=== PATIENT | female | born 1970 | race American Indian/Alaskan Native ===

== ENCOUNTER 2017-02-24 13:25 | Observation (INO) | payer MEDICARE, OTHER ==
[2017-02-24 13:26] VITALS: BMI 29.8
[2017-02-24] MEDS ORDERED: Aspirin 325 mg EC Tablets PO STA (14:07)
--- NOTE | 2017-02-24 14:29 | C.PDOC ---
History Of Present Illness 46 y/o female, sent by her PMD Dr. Trevon Rachel, and who reports she has been having chest pain on/off for several months. Pt with 2 prior ER visits, during which she reports "nothing was done". Patient was seen at PMD office today and sent to ED after EKG was performed and sent to Dr. Infante. Patient notes chest pain worsens with exertion and better with rest. Patient states she feels SOB and lightheaded with some palpitations on exertion. Notes she does not take anything for these symptoms. Dr. Infante reviewed EKG and called in saying the EKG looked ischemic, requesting admission for unstable angina. Time Seen by Provider: 02/24/17 13:38 Chief Complaint (Nursing): Chest Pain History Per: Patient History/Exam Limitations: no limitations Onset/Duration Of Symptoms: Days Current Symptoms Are (Timing): Still Present Quality: "Pain" Exacerbating Factors: Exertion Alleviating Factors: Rest Recent travel outside of the [facility]: No Past Medical History Reviewed: Historical Data, Nursing Documentation, Vital Signs Vital Signs: Last Vital Signs Temp 98.7 F 02/24/17 13:29 Pulse 20 L 02/24/17 13:29 Resp 70 H 02/24/17 13:29 BP 122/73 02/24/17 13:29 Pulse Ox 99 02/24/17 14:53 - Medical History PMH: Anxiety, Arthritis, Asthma, Back Problems, Depression, Gastritis, GERD, Hyperlipidemia Surgical History: - [facility] Procedures APPLICATION OF SPLINT (03/06/13) Family History: States: Unknown Family Hx - Social History Hx Tobacco Use: No Hx Alcohol Use: No Hx Substance Use: No - Immunization History Hx Tetanus Toxoid Vaccination: No Hx Influenza Vaccination: No Hx Pneumococcal Vaccination: No Review Of Systems Except As Marked, All Systems Reviewed And Found Negative. Constitutional: Negative for: Fever, Chills Cardiovascular: Positive for: Chest Pain. Negative for: Palpitations Respiratory: Negative for: Cough, Shortness of Breath Gastrointestinal: Negative for: Nausea, Vomiting Skin: Negative for: Rash Physical Exam - Physical Exam Appears: Non-toxic, No Acute Distress Skin: Normal Color, Warm, Dry Head: Atraumatic, Normacephalic Oral Mucosa: Moist Chest: Symmetrical Cardiovascular: Rhythm Regular Respiratory: Normal Breath Sounds, No Rales, No Rhonchi, No Wheezing Gastrointestinal/Abdominal: Soft, No Tenderness Back: Normal Inspection Extremity: Normal ROM, Capillary Refill (< 2 sec. ) Neurological/Psych: Oriented x3, Normal Speech, Normal Cognition ED Course And Treatment - Laboratory Results Result Diagrams: 02/24/17 14:49 02/24/17 14:49 Lab Interpretation: No Acute Changes ECG: Interpreted By Me ECG Rhythm: Sinus Rhythm ECG Interpretation: No Acute Changes Interpretation Of ECG: nonspecific ST abnormalities in II, III, aVF, V4, V5 Rate From EC (bpm) O2 Sat by Pulse Oximetry: 99 (RA) Pulse Ox Interpretation: Normal - Radiology CXR: Viewed By Me, Read By Radiologist CXR Interpretation: Yes: No Acute Disease, Other (Poor inspiration with low lung volumes, crowded bronchovascular markings and mild bibasilar atelectasis.) Progress Note: EKG, Bloodwork, CxR ordered. Pt received aspirin in the field as per RN. Discussed with Dr. Bryan, hospitalist, who agrees upon admission. - Physician Consult Information Physician Contacted: Chula Bryan Disposition - Disposition Disposition: HOSPITALIZED Disposition Time: 16:00 Condition: STABLE - POA Present On Arrival: None Core Measure Indicators: Chest Pain - Clinical Impression Clinical Impression: Chest pain - Scribe Statement The provider has reviewed the documentation as recorded by the Kyler Bennett Provider Attestation: All medical record entries made by the Sanfordibkelsie were at my direction and personally dictated by me. I have reviewed the chart and agree that the record accurately reflects my personal performance of the history, physical exam, medical decision making, and the department course for this patient. I have also personally directed, reviewed, and agree with the discharge instructions and disposition.
[2017-02-24 14:52] LABS: BASO # 0.1 K/uL (0.0-0.2); BASO % 1.6 % (0.0-2.0); EOS # 0.1 K/uL (0.0-0.7); HEMATOCRIT 40.6 % (34.0-47.0); LYMPH # 2.2 K/uL (1.0-4.3); LYMPH % 37.1 % (20.0-40.0); MEAN CELL VOLUME 90.4 fL (81.0-99.0); MEAN CORPUSCULAR HEMOGLOBIN 30.2 pg (27.0-31.0); MEAN CORPUSCULAR HGB CONC 33.4 g/dL (33.0-37.0); MEAN PLATELET VOLUME 7.9 fL (7.2-11.7); MONO # 0.4 K/uL (0.0-0.8); MONO % 6.5 % (0.0-10.0); NRBC % 0.1 % (0.0-2.0); RED CELL DISTRIBUTION WIDTH 12.7 % (11.5-14.5)
--- NOTE | 2017-02-24 14:54 | RAD ---
PROCEDURE: CHEST RADIOGRAPH, 1 VIEW HISTORY: chest pain COMPARISON: None available. FINDINGS: LUNGS: Poor inspiration with low lung volumes, crowded bronchovascular markings and mild bibasilar atelectasis. PLEURA: No pneumothorax or pleural fluid seen. CARDIOVASCULAR: Normal. OSSEOUS STRUCTURES: No significant abnormalities. VISUALIZED UPPER ABDOMEN: Normal. OTHER FINDINGS: None. IMPRESSION: Poor inspiration with low lung volumes, crowded bronchovascular markings and mild bibasilar atelectasis.
[2017-02-24 15:01] LABS: CHLORIDE 102 mmol/L (98-107); SODIUM 137 mmol/L (132-148)
[2017-02-24 15:02] LABS: POTASSIUM 3.5 mmol/L (3.6-5.2)
[2017-02-24 15:04] LABS: ALB/GLOB RATIO 1.4 (1.0-2.1); ALKALINE PHOSPHATASE 57 U/L (38-126); AST/SGOT 20 U/L (14-36); BILIRUBIN,TOTAL 0.5 mg/dL (0.2-1.3); BLOOD UREA NITROGEN 9 mg/dL (7-17); CARBON DIOXIDE 24 mmol/L (22-30); GFR AFRICAN-AMERICAN > 60
[2017-02-24 15:05] LABS: ALT/SGPT 17 U/L (9-52); CALCIUM 8.8 mg/dl (8.6-10.4); GLUCOSE,RANDOM 87 mg/dL (65-105)
[2017-02-24] MEDS ORDERED: Potassium Chloride 20 mEq ER Tab PO STA (15:34)
[2017-02-24] MEDS ORDERED: Magnesium Hydroxide Susp 30 ml UD PO ONE (15:34)
[2017-02-24] MEDS ORDERED: Albuterol-Ipratrop 3 mg / 0.5 (3 ml) UD INH PRN (15:51)
[2017-02-24] MEDS ORDERED: Potassium Chloride 20 mEq ER Tab PO ONE (15:59)
[2017-02-24] MEDS ORDERED: Aluminum Hydroxide/Magnesium Hydroxide Susp (30 mL) ONE (15:59)
--- NOTE | 2017-02-24 16:01 | CP.PCM.HP ---
<Ning Brown - Last Filed: 02/24/17 15:51> History of Present Illness - History of Present Illness History of Present Illness: CC: "on and off chest pain x 2 months" HPI: Patient is a 46 year old female with PMHx of hyperlipidemia, asthma, arthritis, GERD, anxiety and depression presenting for a 2+ month history of intermittent right and left sided chest pain. Patient says she does not remember what she was doing the first time she got the pain. She says it feels like a pressure that lasts 30 minutes, disappears for 30 minutes and then comes back. She says it goes through this cycle constantly. She never has a pain free day. Patient says the pain is not associated with walking. However, when she walks up stairs she gets SOB and gets palpitations along with the chest pressure. Patient says a few days ago the pain "went to my head" and made her feel dizzy. Patient says she feels the pain when she or someone else presses on her chest. Patient says aspirin helps the pain a little. Patient went to her PMD today. He took an EKG, sent it to mold parter, Dr. Infante. Dr. Infante said EKG looks like it has ischemic changes and that she should come into the ER. Patient denies burning pain for a few months. Patient says protonix made her vomit and get indigestion so she stopped taking it and now she feels better. However, she still feels nauseous sometimes and only has bowel movements twice a week. Patient also reports decreased vision and decreased hearing that started a few months ago. Patient also reports low back pain radiating into her feet causing tingling on the soles of her feet. Patient also reports neck pain radiating into both arms and two weeks of numbness in her left shoulder and left arm. Patient denies fever, chills, wheezes, coughing , diarrhea, dysuria, rashes. Patient does report dry skin. Patient denies suicidal ideations. PMD: Dr. Rogers Rachel PMHx: as above PSHx: 2001, endoscopy 2016 - gastritis found Family Hx: Mother - [place] at 64, Father - stroke at 64, DM, Brother - DM Social Hx: does not smoke, used to smoke a cigarette with friends approximately once a month but quit that one year ago, denies illicit drug use, lives with her daughter, is on disability for arthritis and depression Present on Admission - Present on Admission Any Indicators Present on Admission: No History of DVT/PE: No History of Uncontrolled Diabetes: No Urinary Catheter: No Review of Systems - Constitutional Constitutional: absent: Chills, Fever - EENT Eyes: Blurred Vision, Change in Vision Ears: Dizziness - Cardiovascular Cardiovascular: Chest Pain, Chest Pain at Rest, Dyspnea, Dyspnea on Exertion, Lightheadedness, Palpitations. absent: Diaphoresis, Edema, Pedal Edema - Respiratory Respiratory: Dyspnea. absent: Cough, Wheezing, Excessive Mucous Production - Gastrointestinal Gastrointestinal: Constipation, Heartburn, Nausea. absent: Abdominal Pain, Diarrhea, Vomiting - Genitourinary Genitourinary: absent: Dysuria - Musculoskeletal Musculoskeletal: Back Pain, Neck Pain, Numbness, Tingling - Integumentary Integumentary: Dry Skin - Neurological Neurological: Dizziness. absent: Headaches - Psychiatric Psychiatric: Anxiety. absent: Depression - Endocrine Endocrine: Palpitations. absent: Fatigue - Hematologic/Lymphatic Hematologic: absent: Easy Bleeding, Easy Bruising Past Patient History - Tetanus Immunizations Tetanus Immunization: Unknown - Past Medical History & Family History Past Medical History?: Yes Pertinent Family History: Mother - [place] at 64, Father - stroke at 64, DM, Brother - DM - Past Social History Smoking Status: Former Smoker Occupation: disability Alcohol: None Drugs: Denies Home Situation {Lives}: With Family - CARDIAC Hx Cardiac Disorders: No - PULMONARY Hx Asthma: Yes - MUSCULOSKELETAL/RHEUMATOLOGICAL Hx Arthritis: Yes - GASTROINTESTINAL Hx Gastritis: Yes - PSYCHIATRIC Hx Anxiety: Yes Hx Depression: Yes Hx Substance Use: No - SURGICAL HISTORY Hx Section: Yes - ANESTHESIA Hx Anesthesia: Yes Hx Anesthesia Reactions: No Hx Malignant Hyperthermia: No Meds Allergies/Adverse Reactions: Allergies Allergy/AdvReac Type Severity Reaction Status Date / Time No Known Allergies Allergy Verified 02/24/17 13:33 Physical Exam - Constitutional Appears: Non-toxic, No Acute Distress - Head Exam Head Exam: NORMAL INSPECTION - Eye Exam Eye Exam: EOMI, Normal appearance - ENT Exam ENT Exam: Mucous Membranes Moist - Respiratory Exam Respiratory Exam: Chest Wall Tenderness, Clear to Auscultation Bilateral, NORMAL BREATHING PATTERN. absent: Accessory Muscle Use, Decreased Breath Sounds , Rales, Rhonchi, Wheezes, Respiratory Distress Additional comments: inflammation of 3rd left rib insertion into sternum - Cardiovascular Exam Cardiovascular Exam: REGULAR RHYTHM, +S1, +S2. absent: Gallop, Rubs, Systolic Murmur - GI/Abdominal Exam GI & Abdominal Exam: Normal Bowel Sounds, Soft. absent: Distended, Firm, Tenderness - Extremities Exam Extremities exam: Positive for: normal capillary refill. Negative for: pedal edema - Neurological Exam Neurological exam: Alert, Oriented x3 - Psychiatric Exam Psychiatric exam: Normal Affect, Normal Mood - Skin Skin Exam: Normal Color, Warm Results - Vital Signs Recent Vital Signs: Last Vital Signs Temp 98.7 F 02/24/17 13:29 Pulse 20 L 02/24/17 13:29 Resp 70 H 02/24/17 13:29 BP 122/73 02/24/17 13:29 Pulse Ox 99 02/24/17 14:53 - Labs Result Diagrams: 02/24/17 14:49 02/24/17 14:49 Labs: Laboratory Results - last 24 hr 02/24/17 02/24/17 02/24/17 14:49 14:49 14:49 WBC 6.0 RBC 4.49 Hgb 13.6 Hct 40.6 MCV 90.4 MCH 30.2 MCHC 33.4 RDW 12.7 Plt Count 282 MPV 7.9 Neut % (Auto) 52.8 Lymph % (Auto) 37.1 [place] % (Auto) 6.5 Eos % (Auto) 2.0 Baso % (Auto) 1.6 Neut # 3.2 Lymph # 2.2 [place] # 0.4 Eos # 0.1 Baso # 0.1 Sodium 137 Potassium 3.5 L Chloride 102 Carbon Dioxide 24 Anion Gap 15 BUN 9 Creatinine 0.6 L Est GFR ( Amer) > 60 Est GFR (Non-Af Amer) > 60 Random Glucose 87 Calcium 8.8 Total Bilirubin 0.5 AST 20 ALT 17 Alkaline Phosphatase 57 Troponin I < 0.0120 Total Protein 7.0 Albumin 4.1 Globulin 3.0 Albumin/Globulin Ratio 1.4 Urine HCG, Qual Urine Opiates Screen Negative Urine Methadone Screen Negative Ur Barbiturates Screen Negative Ur Phencyclidine Scrn Negative Ur Amphetamines Screen Negative U Benzodiazepines Scrn Negative U Oth Cocaine Metabols Negative U Cannabinoids Screen Negative 02/24/17 14:49 WBC RBC Hgb Hct MCV MCH MCHC RDW Plt Count MPV Neut % (Auto) Lymph % (Auto) [place] % (Auto) Eos % (Auto) Baso % (Auto) Neut # Lymph # [place] # Eos # Baso # Sodium Potassium Chloride Carbon Dioxide Anion Gap BUN Creatinine Est GFR ( Amer) Est GFR (Non-Af Amer) Random Glucose Calcium Total Bilirubin AST ALT Alkaline Phosphatase Troponin I Total Protein Albumin Globulin Albumin/Globulin Ratio Urine HCG, Qual Negative Urine Opiates Screen Urine Methadone Screen Ur Barbiturates Screen Ur Phencyclidine Scrn Ur Amphetamines Screen U Benzodiazepines Scrn U Oth Cocaine Metabols U Cannabinoids Screen Assessment & Plan - Assessment and Plan (Free Text) Assessment: Chest Pain ALEXANDER neg x 1 EKG - NSR with ST wave abnormality F/U ROMIs x2 with EKGs Cardio consult - Dr. Infante - help appreciated F/U ECHO F/U FLP, HgbA1C, TSH Observation on telemetry floor Costochondritis Toradol 30mg IVP Q6 F/U Chest CT to evaluate ribs Sciatica Flexeril 10mg PO HS Toradol 30mg IVP Q6 Hyperlipidemia F/U Lipid panel [place] 3 1gm PO BID (home med) Crestor 10mg PO HS Asthma Duonebs Q6H PRN SOB GERD Pepcid 20mg PO BID F/U H. Pylori Ag Constipation Colace 100mg PO BID Milk of Magnesia Prophylactic measure SCDs Pepcid 20mg PO BID <Valentin Soto - Last Filed: 02/25/17 12:41> Results - Vital Signs Recent Vital Signs: Last Vital Signs Temp 98.2 F 02/25/17 07:00 Pulse 64 02/25/17 07:00 Resp 20 02/25/17 07:00 BP 106/67 02/25/17 07:00 Pulse Ox 98 02/25/17 07:00 - Labs Result Diagrams: 02/25/17 04:15 02/25/17 04:15 Labs: Laboratory Results - last 24 hr 02/24/17 02/25/17 02/25/17 21:25 04:15 04:15 WBC 6.0 RBC 4.29 Hgb 13.2 Hct 39.1 MCV 91.2 MCH 30.7 MCHC 33.7 RDW 12.7 Plt Count 262 MPV 7.8 Neut % (Auto) 41.1 L Lymph % (Auto) 46.6 H [place] % (Auto) 7.2 Eos % (Auto) 4.0 Baso % (Auto) 1.1 Neut # 2.5 Lymph # 2.8 [place] # 0.4 Eos # 0.2 Baso # 0.1 Sodium 135 Potassium 4.0 Chloride 103 Carbon Dioxide 23 Anion Gap 13 BUN 10 Creatinine 0.7 Est GFR ( Amer) > 60 Est GFR (Non-Af Amer) > 60 Random Glucose 96 Hemoglobin A1c Calcium 8.7 Total Bilirubin 0.4 AST 16 ALT 18 Alkaline Phosphatase 55 Total Creatine Kinase 51 49 CK-MB (Mass) < 0.22 < 0.22 Troponin I, Quant < 0.0120 < 0.0120 Total Protein 6.5 Albumin 3.6 Globulin 2.9 Albumin/Globulin Ratio 1.2 Triglycerides 55 Cholesterol 179 LDL Cholesterol Direct 125 HDL Cholesterol 46 TSH 3rd Generation 2.68 02/25/17 04:15 WBC RBC Hgb Hct MCV MCH MCHC RDW Plt Count MPV Neut % (Auto) Lymph % (Auto) [place] % (Auto) Eos % (Auto) Baso % (Auto) Neut # Lymph # [place] # Eos # Baso # Sodium Potassium Chloride Carbon Dioxide Anion Gap BUN Creatinine Est GFR ( Amer) Est GFR (Non-Af Amer) Random Glucose Hemoglobin A1c 5.4 Calcium Total Bilirubin AST ALT Alkaline Phosphatase Total Creatine Kinase CK-MB (Mass) Troponin I, Quant Total Protein Albumin Globulin Albumin/Globulin Ratio Triglycerides Cholesterol LDL Cholesterol Direct HDL Cholesterol TSH 3rd Generation Attending/Attestation - Attestation I have personally seen and examined this patient.: Yes I have fully participated in the care of the patient.: Yes I have reviewed all pertinent clinical information: Yes Notes (Text): Patient seen and examined with the resident. Agree with the resident's evaluation, assessment and plan. Chest Pain likely musculoskeletal ALEXANDER neg x 1 EKG - NSR with ST wave abnormality F/U ROMIs x2 with EKGs Cardio consult - Dr. Infante - help appreciated F/U ECHO F/U FLP, HgbA1C, TSH Observation on telemetry floor Costochondritis high likelyhood Toradol 30mg IVP Q6 F/U Chest CT to evaluate ribs Sciatica Flexeril 10mg PO HS Toradol 30mg IVP Q6 Hyperlipidemia F/U Lipid panel [place]on[place] 3 1gm PO BID (home med) Crestor 10mg PO HS
--- NOTE | 2017-02-24 17:30 | CT ---
PROCEDURE: CT scan chest dated 02/24/2017 HISTORY: Reproducible chest pain with rib abnormality. COMPARISON: Comparison made with chest radiograph obtained earlier same day TECHNIQUE: Contiguous axial images were obtained through the chest without intravenous contrast enhancement. Sagittal and coronal reconstructions were performed. Radiation dose (DLP): 403.67 mGy-cm. This CT exam was performed using one or more of the following dose reduction techniques: Automated exposure control, adjustment of the mA and/or kV according to patient size, and/or use of iterative reconstruction technique. FINDINGS: LUNGS: .Lung lynn are clear without focal consolidation. Small subpleural nodule seen in the left lung apex which probably represents a mild residual pleural thickening or scarring. Follow-up chest CT scan in 6 months could be performed to assess stability. MEDIASTINUM: Heart size within range of normal. No significant pericardial effusion. . There are mildly enlarged left para-aortic lymph nodes seen ; one measuring approximately 2.05 cm and the 2nd measuring approximately 1.75 cm. Smaller mediastinal lymph nodes also present. Evaluation for hilar adenopathy is somewhat limited due to the lack of circulating intravenous contrast material. Small hiatal hernia. PLEURA: No pleural fluid. No pneumothorax. BONES: The bony ribs appear intact without evidence of acute chronic fracture deformities. UPPER ABDOMEN: Visualized upper abdominal structures unremarkable. OTHER FINDINGS: None. IMPRESSION: No acute infiltrates. Small subpleural nodular density left lung apex may represent sequela of pleural thickening/ inflammation. Follow-up CT scan in 6 months could be performed. There are least 2 mildly enlarged mediastinal lymph nodes on as detailed above. Clinical correlation recommended.
[2017-02-24] MEDS: Omega-3-Acid Ethyl Esters 1 GM Cap PO SCH (17:57)
[2017-02-25 04:20] LABS: BASO # 0.1 K/uL (0.0-0.2); BASO % 1.1 % (0.0-2.0); EOS # 0.2 K/uL (0.0-0.7); HEMATOCRIT 39.1 % (34.0-47.0); LYMPH # 2.8 K/uL (1.0-4.3); LYMPH % 46.6 % (20.0-40.0); MEAN CELL VOLUME 91.2 fL (81.0-99.0); MEAN CORPUSCULAR HEMOGLOBIN 30.7 pg (27.0-31.0); MEAN CORPUSCULAR HGB CONC 33.7 g/dL (33.0-37.0); MEAN PLATELET VOLUME 7.8 fL (7.2-11.7); MONO # 0.4 K/uL (0.0-0.8); MONO % 7.2 % (0.0-10.0); NRBC % 0.1 % (0.0-2.0); RED CELL DISTRIBUTION WIDTH 12.7 % (11.5-14.5)
[2017-02-25 04:29] LABS: CHLORIDE 103 mmol/L (98-107)
[2017-02-25 04:30] LABS: SODIUM 135 mmol/L (132-148)
[2017-02-25 04:32] LABS: ALB/GLOB RATIO 1.2 (1.0-2.1); ALKALINE PHOSPHATASE 55 U/L (38-126); AST/SGOT 16 U/L (14-36); BILIRUBIN,TOTAL 0.4 mg/dL (0.2-1.3); BLOOD UREA NITROGEN 10 mg/dL (7-17); CARBON DIOXIDE 23 mmol/L (22-30); CHOLESTEROL 179 mg/dL (0-199); GFR AFRICAN-AMERICAN > 60; TOTAL PROTEIN 6.5 g/dL (6.3-8.3)
[2017-02-25 04:33] LABS: ALT/SGPT 18 U/L (9-52); CALCIUM 8.7 mg/dl (8.6-10.4); GLUCOSE,RANDOM 96 mg/dL (65-105)
[2017-02-25 05:04] LABS: THYROID STIMULATING HORMONE 2.68 mIU/L (0.46-4.68)
[2017-02-25] MEDS ORDERED: Midazolam 2 MG/2 ML VIAL ONE ×2 (10:18→11:12)
[2017-02-25] MEDS: Omega-3-Acid Ethyl Esters 1 GM Cap PO SCH ×2 (11:20→18:18)
--- NOTE | 2017-02-25 14:42 | CP.PCM.PN ---
<Ning Glass DO - Last Filed: 02/25/17 14:40> Subjective - Date & Time of Evaluation Date of Evaluation: 02/25/17 Time of Evaluation: 09:10 - Subjective Subjective: PGY1 progress note for Dr. Ortiz Patient seen and examined. Patient to have cardiac catheterization with Dr. Mercado today. Patient had outpatient EKG with PMD Dr. Rogers Rachel that showed some T wave inversions with concern for ischemic changes. Patient complains of chest achiness currently, with some reproduction of pain on exam. Objective - Vital Signs/Intake and Output Vital Signs (last 24 hours): Temp Pulse Resp BP Pulse Ox 98.2 F 64 20 106/67 98 02/25/17 07:00 02/25/17 07:00 02/25/17 07:00 02/25/17 07:00 02/25/17 07:00 Intake and Output: 02/25/17 02/25/17 06:59 18:59 Intake Total 10 Balance 10 - Medications Medications: Current Medications Albuterol/Ipratropium (Duoneb 3 Mg/0.5 Mg (3 Ml) Ud) 3 ml INH RQ6 PRN PRN Reason: Shortness of Breath Aspirin (Ecotrin) 81 mg PO DAILY [facility] Last Admin: 02/25/17 11:20 Dose: Not Given Cyclobenzaprine HCl (Flexeril) 10 mg PO HS [facility] Last Admin: 02/24/17 22:36 Dose: 10 mg Docusate Sodium (Colace) 100 mg PO BID [facility] Last Admin: 02/25/17 11:20 Dose: Not Given Famotidine (Pepcid) 20 mg PO BID [facility] Last Admin: 02/25/17 11:20 Dose: Not Given Heparin Sodium (Porcine) (Heparin) 5,000 units SC Q12 [facility] Ketorolac Tromethamine (Toradol) 30 mg IVP Q6 PRN PRN Reason: Pain, moderate (4-7) Fmgci-3-Dipq Ethyl Esters (Lovaza) 1 gm PO BID [facility] Last Admin: 02/25/17 11:20 Dose: Not Given Rosuvastatin Calcium (Crestor) 10 mg PO HS [facility] Last Admin: 02/24/17 22:36 Dose: 10 mg - Labs Labs: 02/25/17 04:15 02/25/17 04:15 - Constitutional Appears: No Acute Distress - Head Exam Head Exam: ATRAUMATIC - Eye Exam Eye Exam: EOMI - ENT Exam ENT Exam: Mucous Membranes Moist - Respiratory Exam Respiratory Exam: Chest Wall Tenderness, Clear to Ausculation Bilateral, NORMAL BREATHING PATTERN - Cardiovascular Exam Cardiovascular Exam: +S1, +S2 - GI/Abdominal Exam GI & Abdominal Exam: Soft, Normal Bowel Sounds. absent: Tenderness - Extremities Exam Extremities Exam: absent: Pedal Edema - Neurological Exam Neurological Exam: Alert, Awake - Psychiatric Exam Psychiatric exam: Normal Affect - Skin Skin Exam: Warm Assessment and Plan - Assessment and Plan (Free Text) Assessment: Chest Pain EKG - NSR with ST wave abnormality ROMIs negative Cardio consult - Dr. Infante - help appreciated ECHO done, report pending F/U FLP, HgbA1C, TSH Observation on telemetry floor s/p cardiac cath with clean coronaries Costochondritis Toradol 30mg IVP Q6 Chest CT: no acute infiltrates, small subpleural nodular density left lung apex may represent sequela of peural thickening/ inflammation. f/u CT scan in 6 months could be performed. at least 2 mildly enlarged mediastinal lymph nodes Sciatica Flexeril 10mg PO HS Toradol 30mg IVP Q6 Hyperlipidemia Lipid panel: Triglycerides 55/ cholesterol 179/ LDL 125/ HDL 46 [place] 3 1gm PO BID (home med) Crestor 10mg PO HS Asthma Duonebs Q6H PRN SOB GERD Pepcid 20mg PO BID F/U H. Pylori Ag Constipation Colace 100mg PO BID Milk of Magnesia Prophylactic measure SCDs Pepcid 20mg PO BID <Ahsan Ortiz H - Last Filed: 02/25/17 16:05> Objective - Vital Signs/Intake and Output Vital Signs (last 24 hours): Temp Pulse Resp BP Pulse Ox 98.2 F 64 20 106/67 98 02/25/17 07:00 02/25/17 07:00 02/25/17 07:00 02/25/17 07:00 02/25/17 07:00 Intake and Output: 02/25/17 02/25/17 06:59 18:59 Intake Total 10 Balance 10 - Medications Medications: Current Medications Albuterol/Ipratropium (Duoneb 3 Mg/0.5 Mg (3 Ml) Ud) 3 ml INH RQ6 PRN PRN Reason: Shortness of Breath Aspirin (Ecotrin) 81 mg PO DAILY [facility] Last Admin: 02/25/17 11:20 Dose: Not Given Cyclobenzaprine HCl (Flexeril) 10 mg PO HS [facility] Last Admin: 02/24/17 22:36 Dose: 10 mg Docusate Sodium (Colace) 100 mg PO BID [facility] Last Admin: 02/25/17 11:20 Dose: Not Given Famotidine (Pepcid) 20 mg PO BID [facility] Last Admin: 02/25/17 11:20 Dose: Not Given Heparin Sodium (Porcine) (Heparin) 5,000 units SC Q12 [facility] Ketorolac Tromethamine (Toradol) 30 mg IVP Q6 PRN PRN Reason: Pain, moderate (4-7) Rkmve-6-Toch Ethyl Esters (Lovaza) 1 gm PO BID [facility] Last Admin: 02/25/17 11:20 Dose: Not Given Rosuvastatin Calcium (Crestor) 10 mg PO HS [facility] Last Admin: 02/24/17 22:36 Dose: 10 mg - Labs Labs: 02/25/17 04:15 02/25/17 04:15 Attending/Attestation - Attestation I have personally seen and examined this patient.: Yes I have fully participated in the care of the patient.: Yes I have reviewed all pertinent clinical information, including history, physical exam and plan: Yes Notes (Text): Medical attending: Patient was seen and examined by me, agree with the above note by medical records technician. We saw her much earlier in the morning she had already been moved down to [place] and then from echo over to the [facility] waiting area. I spoke with the patient's primary care physician who did a EKG in the office and saw that there was a lot of concerning T-wave changes. When I spoke with the patient in the morning she said that she had been having these intermittent chest discomforts that were hard to describe to her for the past month and half So when I saw in the morning she had not yet had the cardiac cath done later on in the day I was informed that she completed the cardiac cath findings were okay I just will have an official report as of yet Thank you very much, Ahsan Ortiz
--- NOTE | 2017-02-25 16:38 | CARDCATH ---
PROCEDURE DATE: 02/25/2017 PERFORMING PHYSICIAN: Radha Mercado MD REFERRING PHYSICIAN: Valentin Soto MD PROCEDURE PERFORMED: Left heart catheterization, coronary angiography, left ventriculography. INDICATIONS: Unstable angina. HISTORY: The patient is a 46-year-old female with past medical history of hypertension, hypercholest erolemia, who has unstable angina. She is admitted for further management. DESCRIPTION OF PROCEDURE: After obtaining informed consent, the patient was prepped and draped in th e usual sterile fashion. The right groin was anesthetized with 2% lidocaine solution. A 6-English sh eath was inserted into right common femoral artery via modified Seldinger technique. Coronary angiog rudy and left ventriculography were then performed. All catheters were removed. Manual pressure wa s applied to achieve hemostasis. FINDINGS: LEFT MAIN: Normal. LEFT ANTERIOR DESCENDING ARTERY: Arises from left sinus of Valsalva. The mid vessel is intramyocard ial. Otherwise, there is no significant atherosclerosis. LEFT CIRCUMFLEX ARTERY: Normal. RIGHT CORONARY ARTERY: Arises from the right sinus of Valsalva. This is a right dominant circulatio n. Normal. LEFT VENTRICLE: Normal left ventricular systolic function. Ejection fraction 55% to 60%. There is no mitral regurgitation, no aortic stenosis. CONCLUSIONS: 1. No angiographic evidence of significant coronary artery disease. 2. Normal left ventricular function. PLAN: Medical therapy. Radha Mercado MD cc: [phone] TT: 02/25/2017 16:38:36 dn
[2017-02-25 16:42] VITALS: O2SAT 97
--- NOTE | 2017-02-25 23:16 | CARD ---
APPROVED REPORT EKG Measurement Heart [id number] <Conclusion> Normal sinus rhythm Nonspecific T wave abnormality Abnormal ECG
--- NOTE | 2017-02-25 23:16 | CARD ---
APPROVED REPORT EKG Measurement Heart [id number] <Conclusion> Normal sinus rhythm Nonspecific T wave abnormality Abnormal ECG
--- NOTE | 2017-02-26 00:06 | CARD ---
APPROVED REPORT EXAM: Two-dimensional and M-mode echocardiogram with Doppler and color Doppler. Other Information Quality : GoodRhythm : NSR INDICATION Chest Pain RISK FACTORS Hyperlipidemia M-Mode DIMENSIONS RVDd2.03 (2.1-3.2cm)Left Atrium (MM)3.19 (2.5-4.0cm) IVSd1.06 (0.7-1.1cm)Aortic Root2.85 (2.2-3.7cm) LVDd4.56 (4.0-5.6cm)Aortic Cusp Exc.1.67 (1.5-2.0cm) PWd1.09 (0.7-1.1cm)FS (%) 41 % LVDs2.67 (2.0-3.8cm)LVEF (%)72 (>50%) Aortic Valve AoV Peak Twqpexkd239.7cm/Reese Peak GR.5mmHg Mitral Valve MV E Ezuhltfd82.6cm/sMV A Odxgcpiy80.9cm/sE/A ratio1.5 TDI E/Lateral E'0.0E/Medial E'0.0 Tricuspid Valve TR Peak Hckcwruk515gq/sTR Peak Gr.01mtOdJLDW13bvIn LEFT VENTRICLE The left ventricle is normal size. There is normal left ventricular wall thickness. Left ventricle systolic function is normal with Ejection Fraction of >70%. There is normal LV segmental wall motion. The left ventricular diastolic function is normal. No left ventricle thrombus noted on this study. RIGHT VENTRICLE The right ventricle is normal size. The right ventricular systolic function is normal. ATRIA The left atrium size is normal. The right atrium size is normal. AORTIC VALVE The aortic valve is mildly thickened. The aortic valve is trileaflet. No aortic regurgitation is present. There is no aortic valvular stenosis. There is no aortic valvular vegetation. MITRAL VALVE The mitral valve is normal in structure. There is no evidence of mitral valve prolapse. There is no mitral valve stenosis. Mitral regurgitation is trace. TRICUSPID VALVE The tricuspid valve is normal in structure. There is trace to mild tricuspid regurgitation. Right ventricular systolic pressure is estimated at less than 30 mmHg. There is no pulmonary hypertension. There is no tricuspid valve prolapse or vegetation. There is no tricuspid valve stenosis. PULMONIC VALVE The pulmonic valve is not well visualized. There is trace pulmonic valvular regurgitation. GREAT VESSELS The aortic root is normal in size. The IVC is normal in size and collapses >50% with inspiration. PERICARDIAL EFFUSION There is no pericardial effusion. There is no pleural effusion. <Conclusion> The left ventricle is normal size. Left ventricle systolic function is normal with Ejection Fraction of >70%. The right ventricle is normal size. The right ventricular systolic function is normal. The left atrium size is normal. The right atrium size is normal. There is trace to mild tricuspid regurgitation. There is trace pulmonic valvular regurgitation.
[2017-02-26 02:08] VITALS: RESP 20
[2017-02-26 05:15] VITALS: TEMP 98.3
[2017-02-26 08:16] LABS: BASO # 0.1 K/uL (0.0-0.2); BASO % 1.2 % (0.0-2.0); EOS # 0.2 K/uL (0.0-0.7); EOS % 3.2 % (0.0-4.0); HEMATOCRIT 40.5 % (34.0-47.0); LYMPH # 2.1 K/uL (1.0-4.3); LYMPH % 42.1 % (20.0-40.0); MEAN CELL VOLUME 91.3 fL (81.0-99.0); MEAN CORPUSCULAR HEMOGLOBIN 30.4 pg (27.0-31.0); MEAN CORPUSCULAR HGB CONC 33.3 g/dL (33.0-37.0); MEAN PLATELET VOLUME 8.1 fL (7.2-11.7); MONO # 0.3 K/uL (0.0-0.8); MONO % 6.9 % (0.0-10.0); NRBC % 0.1 % (0.0-2.0); RED CELL DISTRIBUTION WIDTH 12.9 % (11.5-14.5)
[2017-02-26 08:35] VITALS: BP 101/64
[2017-02-26 09:27] VITALS: PULSE 72
[2017-02-26] MEDS: Omega-3-Acid Ethyl Esters 1 GM Cap PO SCH (09:51)
[2017-02-26 09:56] LABS: CHLORIDE 107 mmol/L (98-107); POTASSIUM 4.1 mmol/L (3.6-5.2); SODIUM 138 mmol/L (132-148)
[2017-02-26 09:58] LABS: GFR AFRICAN-AMERICAN > 60
[2017-02-26 09:59] LABS: ALB/GLOB RATIO 1.2 (1.0-2.1); ALKALINE PHOSPHATASE 44 U/L (38-126); ALT/SGPT 15 U/L (9-52); AST/SGOT 26 U/L (14-36); BILIRUBIN,TOTAL 0.7 mg/dL (0.2-1.3); BLOOD UREA NITROGEN 9 mg/dL (7-17); CALCIUM 9.1 mg/dl (8.6-10.4); CARBON DIOXIDE 23 mmol/L (22-30); GLUCOSE,RANDOM 80 mg/dL (65-105); TOTAL PROTEIN 6.8 g/dL (6.3-8.3)
--- NOTE | 2017-02-26 16:02 | CP.PCM.DIS ---
<Maria Luisa SHIELDSNing K - Last Filed: 02/26/17 15:47> Provider - Provider Date of Admission: 02/24/17 15:36 Attending physician: Valentin Soto MD Primary care physician: Dr. Lester Consults: Dr. Naresh Mercado Time Spent in preparation of Discharge (in minutes): 40 Diagnosis - Discharge Diagnosis (1) Chest pain Status: Acute Comment: Patient had ALEXANDER panel checked, negative x 3. Patient s/p cardiac catheterization, negative for areas of ischemia. Patient to follow up with PMD Dr. Lester in one week. Hospital Course - Lab Results Lab Results: Most Recent Lab Values WBC 5.0 K/uL (4.8-10.8) 02/26/17 07:56 RBC 4.43 Mil/uL (3.80-5.20) 02/26/17 07:56 Hgb 13.5 g/dL (11.0-16.0) 02/26/17 07:56 Hct 40.5 % (34.0-47.0) 02/26/17 07:56 MCV 91.3 fL (81.0-99.0) 02/26/17 07:56 MCH 30.4 pg (27.0-31.0) 02/26/17 07:56 MCHC 33.3 g/dL (33.0-37.0) 02/26/17 07:56 RDW 12.9 % (11.5-14.5) 02/26/17 07:56 Plt Count 275 K/uL (130-400) 02/26/17 07:56 MPV 8.1 fL (7.2-11.7) 02/26/17 07:56 Neut % (Auto) 46.6 % (50.0-75.0) L 02/26/17 07:56 Lymph % (Auto) 42.1 % (20.0-40.0) H 02/26/17 07:56 [place] % (Auto) 6.9 % (0.0-10.0) 02/26/17 07:56 Eos % (Auto) 3.2 % (0.0-4.0) 02/26/17 07:56 Baso % (Auto) 1.2 % (0.0-2.0) 02/26/17 07:56 Neut # 2.3 K/uL (1.8-7.0) 02/26/17 07:56 Lymph # 2.1 K/uL (1.0-4.3) 02/26/17 07:56 [place] # 0.3 K/uL (0.0-0.8) 02/26/17 07:56 Eos # 0.2 K/uL (0.0-0.7) 02/26/17 07:56 Baso # 0.1 K/uL (0.0-0.2) 02/26/17 07:56 Sodium 138 mmol/L (132-148) 02/26/17 07:56 Potassium 4.1 mmol/L (3.6-5.2) 02/26/17 07:56 Chloride 107 mmol/L (98-107) 02/26/17 07:56 Carbon Dioxide 23 mmol/L (22-30) 02/26/17 07:56 Anion Gap 12 (10-20) 02/26/17 07:56 BUN 9 mg/dL (7-17) 02/26/17 07:56 Creatinine 0.6 MG/DL (0.7-1.2) L 02/26/17 07:56 Est GFR ( Amer) > 60 02/26/17 07:56 Est GFR (Non-Af Amer) > 60 02/26/17 07:56 Random Glucose 80 mg/dL (65-105) 02/26/17 07:56 Hemoglobin A1c 5.4 % (4.2-6.5) 02/25/17 04:15 Calcium 9.1 mg/dl (8.6-10.4) 02/26/17 07:56 Total Bilirubin 0.7 mg/dL (0.2-1.3) 02/26/17 07:56 AST 26 U/L (14-36) 02/26/17 07:56 ALT 15 U/L (9-52) 02/26/17 07:56 Alkaline Phosphatase 44 U/L (38-126) 02/26/17 07:56 Total Creatine Kinase 49 U/L (30-135) 02/25/17 04:15 CK-MB (Mass) < 0.22 ng/mL (0.0-3.38) 02/25/17 04:15 Troponin I < 0.0120 ng/mL (0.00-0.120) 02/24/17 14:49 Troponin I, Quant < 0.0120 ng/mL (0.00-0.120) 02/25/17 04:15 Total Protein 6.8 g/dL (6.3-8.3) 02/26/17 07:56 Albumin 3.7 g/dL (3.5-5.0) 02/26/17 07:56 Globulin 3.1 gm/dL (2.2-3.9) 02/26/17 07:56 Albumin/Globulin Ratio 1.2 (1.0-2.1) 02/26/17 07:56 Triglycerides 55 mg/dL (0-149) 02/25/17 04:15 Cholesterol 179 mg/dL (0-199) 02/25/17 04:15 LDL Cholesterol Direct 125 mg/dL (0-129) 02/25/17 04:15 HDL Cholesterol 46 mg/dL (30-70) 02/25/17 04:15 TSH 3rd Generation 2.68 mIU/L (0.46-4.68) 02/25/17 04:15 Urine HCG, Qual Negative (NEGATIVE) 02/24/17 14:49 Urine Opiates Screen Negative (NEGATIVE) 02/24/17 14:49 Urine Methadone Screen Negative (NEGATIVE) 02/24/17 14:49 Ur Barbiturates Screen Negative (NEGATIVE) 02/24/17 14:49 Ur Phencyclidine Scrn Negative (NEGATIVE) 02/24/17 14:49 Ur Amphetamines Screen Negative (NEGATIVE) 02/24/17 14:49 U Benzodiazepines Scrn Negative (NEGATIVE) 02/24/17 14:49 U Oth Cocaine Metabols Negative (NEGATIVE) 02/24/17 14:49 U Cannabinoids Screen Negative (NEGATIVE) 02/24/17 14:49 - Hospital Course Hospital Course: On Admission Patient is a 46 year old female with PMHx of hyperlipidemia, asthma, arthritis, GERD, anxiety and depression presenting for a 2+ month history of intermittent right and left sided chest pain. Patient says she does not remember what she was doing the first time she got the pain. She says it feels like a pressure that lasts 30 minutes, disappears for 30 minutes and then comes back. She says it goes through this cycle constantly. She never has a pain free day. Patient says the pain is not associated with walking. However, when she walks up stairs she gets SOB and gets palpitations along with the chest pressure. Patient says a few days ago the pain "went to my head" and made her feel dizzy. Patient says she feels the pain when she or someone else presses on her chest. Patient says aspirin helps the pain a little. Patient went to her PMD today. He took an EKG, sent it to quality assurance group leader, Dr. Infante. Dr. Infante said EKG looks like it has ischemic changes and that she should come into the ER. Patient denies burning pain for a few months. Patient says protonix made her vomit and get indigestion so she stopped taking it and now she feels better. However, she still feels nauseous sometimes and only has bowel movements twice a week. Patient also reports decreased vision and decreased hearing that started a few months ago. Patient also reports low back pain radiating into her feet causing tingling on the soles of her feet. Patient also reports neck pain radiating into both arms and two weeks of numbness in her left shoulder and left arm. Patient denies fever, chills, wheezes, coughing, diarrhea, dysuria, rashes. Patient does report dry skin. Patient denies suicidal ideations. During hospitalization: Chest CT: no acute infiltrates, small subpleural nodular density left lung apex may represent sequela of peural thickening/ inflammation. Followup CT scan in 6 months could be performed. at least 2 mildly enlarged mediastinal lymph nodes EKG with NSR with ST flattening Patient had cardiac catheterization performed that did not show any areas of ischemia ALEXANDER panel checked x 3- negative Lipid panel: Triglycerides 55/ cholesterol 179/ LDL 125/ HDL 46 On Discharge: Patient is stable for discharge home per Dr. Ortiz. Patient is to follow up with her PMD Dr. Lester within one week. Patient is to follow up with Dr. Infante on discharge. Patient is being given new medications of simvastatin 10mg daily and flexeril 10mg take at night as needed for muscle cramps. Patient is to return to the ED if her symptoms worsen or reoccur. This was explained to the patient who understands and agrees. Discharge Exam - Head Exam Head Exam: ATRAUMATIC - Eye Exam Eye Exam: EOMI - ENT Exam ENT Exam: Mucous Membranes Moist - Respiratory Exam Respiratory Exam: Clear to PA & Lateral, NORMAL BREATHING PATTERN - Cardiovascular Exam Cardiovascular Exam: +S1, +S2 - GI/Abdominal Exam GI & Abdominal Exam: Normal Bowel Sounds, Soft - Extremities Exam Extremities exam: normal inspection - Neurological Exam Neurological exam: Alert, Oriented x3 - Psychiatric Exam Psychiatric exam: Normal Affect - Skin Skin Exam: Dry, Warm Discharge Plan - Discharge Medications Prescriptions: Cyclobenzaprine [Flexeril] 10 mg PO HS #30 tab Simvastatin 10 mg PO HS #30 tablet - Follow Up Plan Condition: STABLE Disposition: HOME/ ROUTINE Instructions: Cyclobenzaprine (By mouth), Simvastatin (By mouth), Chest Pain ( DC) Additional Instructions: Patient is stable for discharge home per Dr. Ortiz. Patient is to follow up with her PMD Dr. Lester within one week. Patient is to follow up with Dr. Infante on discharge. Patient is being given new medications of simvastatin 10mg daily and flexeril 10mg take at night as needed for muscle cramps. Patient is to return to the ED if her symptoms worsen or reoccur. This was explained to the patient who understands and agrees. Referrals: Manpreet Infante MD [Staff Provider] - Virginie Lester MD [Medical Doctor] - 7 Days <Ahsan Ortiz - Last Filed: 02/26/17 17:06> Provider - Provider Date of Admission: 02/24/17 15:36 Attending physician: Valentin Soto MD Hospital Course - Lab Results Lab Results: Most Recent Lab Values WBC 5.0 K/uL (4.8-10.8) 02/26/17 07:56 RBC 4.43 Mil/uL (3.80-5.20) 02/26/17 07:56 Hgb 13.5 g/dL (11.0-16.0) 02/26/17 07:56 Hct 40.5 % (34.0-47.0) 02/26/17 07:56 MCV 91.3 fL (81.0-99.0) 02/26/17 07:56 MCH 30.4 pg (27.0-31.0) 02/26/17 07:56 MCHC 33.3 g/dL (33.0-37.0) 02/26/17 07:56 RDW 12.9 % (11.5-14.5) 02/26/17 07:56 Plt Count 275 K/uL (130-400) 02/26/17 07:56 MPV 8.1 fL (7.2-11.7) 02/26/17 07:56 Neut % (Auto) 46.6 % (50.0-75.0) L 02/26/17 07:56 Lymph % (Auto) 42.1 % (20.0-40.0) H 02/26/17 07:56 [place] % (Auto) 6.9 % (0.0-10.0) 02/26/17 07:56 Eos % (Auto) 3.2 % (0.0-4.0) 02/26/17 07:56 Baso % (Auto) 1.2 % (0.0-2.0) 02/26/17 07:56 Neut # 2.3 K/uL (1.8-7.0) 02/26/17 07:56 Lymph # 2.1 K/uL (1.0-4.3) 02/26/17 07:56 [place] # 0.3 K/uL (0.0-0.8) 02/26/17 07:56 Eos # 0.2 K/uL (0.0-0.7) 02/26/17 07:56 Baso # 0.1 K/uL (0.0-0.2) 02/26/17 07:56 Sodium 138 mmol/L (132-148) 02/26/17 07:56 Potassium 4.1 mmol/L (3.6-5.2) 02/26/17 07:56 Chloride 107 mmol/L (98-107) 02/26/17 07:56 Carbon Dioxide 23 mmol/L (22-30) 02/26/17 07:56 Anion Gap 12 (10-20) 02/26/17 07:56 BUN 9 mg/dL (7-17) 02/26/17 07:56 Creatinine 0.6 MG/DL (0.7-1.2) L 02/26/17 07:56 Est GFR ( Amer) > 60 02/26/17 07:56 Est GFR (Non-Af Amer) > 60 02/26/17 07:56 Random Glucose 80 mg/dL (65-105) 02/26/17 07:56 Hemoglobin A1c 5.4 % (4.2-6.5) 02/25/17 04:15 Calcium 9.1 mg/dl (8.6-10.4) 02/26/17 07:56 Total Bilirubin 0.7 mg/dL (0.2-1.3) 02/26/17 07:56 AST 26 U/L (14-36) 02/26/17 07:56 ALT 15 U/L (9-52) 02/26/17 07:56 Alkaline Phosphatase 44 U/L (38-126) 02/26/17 07:56 Total Creatine Kinase 49 U/L (30-135) 02/25/17 04:15 CK-MB (Mass) < 0.22 ng/mL (0.0-3.38) 02/25/17 04:15 Troponin I < 0.0120 ng/mL (0.00-0.120) 02/24/17 14:49 Troponin I, Quant < 0.0120 ng/mL (0.00-0.120) 02/25/17 04:15 Total Protein 6.8 g/dL (6.3-8.3) 02/26/17 07:56 Albumin 3.7 g/dL (3.5-5.0) 02/26/17 07:56 Globulin 3.1 gm/dL (2.2-3.9) 02/26/17 07:56 Albumin/Globulin Ratio 1.2 (1.0-2.1) 02/26/17 07:56 Triglycerides 55 mg/dL (0-149) 02/25/17 04:15 Cholesterol 179 mg/dL (0-199) 02/25/17 04:15 LDL Cholesterol Direct 125 mg/dL (0-129) 02/25/17 04:15 HDL Cholesterol 46 mg/dL (30-70) 02/25/17 04:15 TSH 3rd Generation 2.68 mIU/L (0.46-4.68) 02/25/17 04:15 Urine HCG, Qual Negative (NEGATIVE) 02/24/17 14:49 Urine Opiates Screen Negative (NEGATIVE) 02/24/17 14:49 Urine Methadone Screen Negative (NEGATIVE) 02/24/17 14:49 Ur Barbiturates Screen Negative (NEGATIVE) 02/24/17 14:49 Ur Phencyclidine Scrn Negative (NEGATIVE) 02/24/17 14:49 Ur Amphetamines Screen Negative (NEGATIVE) 02/24/17 14:49 U Benzodiazepines Scrn Negative (NEGATIVE) 02/24/17 14:49 U Oth Cocaine Metabols Negative (NEGATIVE) 02/24/17 14:49 U Cannabinoids Screen Negative (NEGATIVE) 02/24/17 14:49 Attending/Attestation - Attestation I have personally seen and examined this patient.: Yes I have fully participated in the care of the patient.: Yes I have reviewed all pertinent clinical information, including history, physical exam and plan: Yes Notes (Text): 02/26/17 17:04 Medical attending: Patient was seen and examined by me, agrees the above note by medical accountant. The patient as mentioned above in the resident note completed her cardiac cath did not show any significant findings. So I explained this to the patient. She' s can have to follow-up with cardiology as well as her outpatient primary medical doctor. She also had a CAT scan of the lungs in the future she should have a repeat CAT scans at these they did see some areas on the apex that were not entirely clear what they were. We discussed the other possibilities of what her chest sensation could be that it may be GERD. The patient reports that she has a history of GERD and that she in the past was taking medication to try control it but nothing seemed to help the other possibility is a musculoskeletal in nature however the patient says that she's not done any heavy lifting her job does not require any heavy lifting or physical activity on her part AQ very much, Ahsan Ortiz
--- NOTE | 2017-02-28 08:45 | CARD ---
APPROVED REPORT EKG Measurement Heart [id number] [id number] <Conclusion> Normal sinus rhythm Normal ECG
== END 2017-02-26 16:20 | disposition home or self-care (01) ==
LOC: C.ER 13:25 → C.9E 15:36 → C.6T 19:18
PROVIDERS: ADMIT Internal Medicine; ATTEND Internal Medicine
DX: R07.9 Chest pain, unspecified (principal); E78.5 Hyperlipidemia, unspecified; J45.909 Unspecified asthma, uncomplicated; K21.9 Gastro-esophageal reflux disease without esophagitis; F41.8 Other specified anxiety disorders
CPT/HCPCS: 36415; 71010; 71250; 80053; 80061; 80324; 80345; 80346; 80349; 80353; 80358; 80361; 83036; 83992; 84443; 84484; 84703; 85025; 93005; 93306; 94770; 99285; G0378; J1644; J2250; J3010; Q9967